=== PATIENT | female | born 1945 | race Caucasian/White ===

== ENCOUNTER 2016-12-03 08:19 | Emergency (ER) | payer OTHER ==
[~2016-12-03] VITALS: Ht 157.5 cm; Wt 63.4 kg
[~2016-12-03 08:19] MED LIST: ABILIFY5 MG PO; ADULT LOW STREN81 M2 PO; ALEVE220 MG PO; AMOXICILLIN875 MG PO; ASCORBIC ACID500 M3 PO; ASPIRIN81 M2 PO; AZO CRANBERRY1 EACH PO; B-121500 MCG PO; BACTRIM,SEPT1 TABLET PO; BENTYL10 MG PO; CALCITRIOL0.5 MCG PO; CARVEDILOL3.125 MG PO; CENTRUM SILV1 TABLET PO; CENTRUM SILVER1 EAC3 PO; CENTRUM SILVER1 EACH PO; CEPHALEXIN500 M2 PO; CIPRO500 MG PO; CLARITIN10 M3; DICYCLOMINE HCL20 MG PO; ERGOCALCIF50000 UNIT PO; FLONASE16 G1 BOTH NARES; FLOVENT 22120 INHALA IH; FLOVENT DISKUS1 DIS2 IH; FOLIC ACID0.8 MG PO; KEFLEX500 MG PO; LAMOTIL PO; LO-DOSE ASPIRIN81 M1 PO; LOMOTIL TABLET1 EACH PO; LORAZEPAM0.5 MG PO; MEDROL DOSEPAK4 MG PO; METRO CREAM 0.745 GM TD; NABI650T PO; OMEPRAZOLE10 M1 PO; PHENOBARBITAL30 MG PO; PHENOBARBITAL32.4 MG PO; PRILOSEC20 MG PO; SERTRALINE HCL50 MG PO; SIMVASTATIN20 M1 PO; SIMVASTATIN20 MG PO; THERAGRAN1 TABLET PO; TYLENOL ARTHRI650 M2 PO; UNABLEOBTAIN; VENTOLIN HFA18 GM IH; VENTOLIN17 GM IH; VITAMIN B12 100MCG PO; VITAMIN B12-FO1 EACH PO; VITAMIN D1000 INTUN PO; ZANTAC150 MG PO; ZOCOR20 MG PO
[2016-12-03 09:49] LABS: EOSINOPHIL (%) 1.4 % (0-5); EOSINOPHIL COUNT 0.1 K/uL (0-0.3); LYMPHOCYTE COUNT 1.9 K/uL (1.0-2.8); MCHC 33.2 G/DL (30.0-36.0); MCV 93.2 FL (83-99); MEAN PLAT.VOLUME 10.1 uM^3 (9.5-12.4); MONOCYTE (%) 8.7 % (3-12); MONOCYTE COUNT 0.6 K/uL (0-0.8); NEUTROPHIL (%) 60.4 % (45-76); NEUTROPHIL COUNT 3.9 K/uL (1.8-6.4); PLATELET COUNT 134 K/uL (156-360); RBC DIS.WIDTH-CV 13.3 % (11.8-14.6); RBC DIS.WIDTH-SD 43.7 % (39-53); RED BLOOD COUNT 3.65 M/uL (3.80-5.20); WHITE BLOOD COUNT 6.5 K/uL (4.1-10.2)
[2016-12-03 10:00] LABS: CHLORIDE 109 mEq/L (99-109); POTASSIUM 3.7 mEq/L (3.7-5.4); SODIUM 140 mEq/L (136-147)
[2016-12-03 10:03] LABS: GLUCOSE 109 mg/dL (70-99)
[2016-12-03 10:04] LABS: ANION GAP 12 MEQ/L (2-14)
[2016-12-03 10:05] LABS: TOTAL BILIRUBIN 0.2 mg/dL (0.0-1.0)
[2016-12-03 10:06] LABS: ALKALINE PHOSPHATASE 116 IU/L (3-129); SERUM ETHYL ALCOHOL < 10 mg/dL
[2016-12-03 10:07] LABS: GFR ESTIMATE (CALCULATED) 29 mL/min/
[2016-12-03 10:08] LABS: UREA NITROGEN (BUN) 29 mg/dL (9-23)
[2016-12-03 12:07] VITALS: BP 166/86
[2016-12-03 12:34] LABS: SAMPLE HEMOLYSIS CHECK 0; SAMPLE ICTERIC CHECK 0; SAMPLE LIPEMIA CHECK 0
== END 2016-12-03 12:08 | disposition home or self-care (01) ==
LOC: EME → EDBD 08:19 → EME 08:19
PROVIDERS: Emergency Medicine
DX: F22 Delusional disorders (principal); F41.9 Anxiety disorder, unspecified; I10 Essential (primary) hypertension; E78.5 Hyperlipidemia, unspecified; G40.909 Epilepsy, unspecified, not intractable, without status epilepticus; Z87.891 Personal history of nicotine dependence; Z79.82 Long term (current) use of aspirin; Z91.040 Latex allergy status
CPT/HCPCS: 80053; 80184; 81003; 85025; 90839; 99281; 99282; G0480

== ENCOUNTER 2016-12-16 17:15 | Emergency (ER) | payer OTHER ==
[~2016-12-16] VITALS: Ht 157.5 cm; Wt 64.4 kg
[2016-12-16 19:26] LABS: ADD MIUA? YES; BILIRUBIN NEGATIVE; BLOOD LARGE; COLOR YELLOW ((YELLOW)); GLUCOSE (STRIP) NEGATIVE; KETONES NEGATIVE; LEUKOCYTES MODERATE; NITRITE NEGATIVE; PROTEIN (STRIP) TRACE; SPECIFIC GRAVITY 1.019 (1.000-1.030); UROBILINOGEN 0.2 MG/DL (0.2-1.0)
[2016-12-16 19:39] LABS: ADD MEDTOX COMMENT Y; AMPHETAMINE NEGATIVE (500 ng/mL); BARBITURATES PRESUMPTIVE POSITIVE (200 ng/mL); BENZODIAZEPINES NEGATIVE (150 ng/mL); COCAINE NEGATIVE (150 ng/mL); INTERNAL CONTROLS VALID? YES; METHADONE NEGATIVE (200 ng/mL); METHAMPHETAMINE NEGATIVE (500 ng/mL); OPIATES (MORPHINE) NEGATIVE (100 ng/mL); OXYCODONE NEGATIVE (100 ng/mL); PHENCYCLIDINE NEGATIVE (25 ng/mL); PROPOXYPHENE NEGATIVE (300 ng/mL); THC CANNABINOIDS NEGATIVE (50 ng/mL); TRICYCLIC ANTIDEPRESSANTS NEGATIVE (300 ng/mL)
[2016-12-16 19:50] LABS: RED BLOOD CELLS TNTC /HPF (0-5)
[2016-12-16 19:51] LABS: BACTERIA NONE SEEN; CASTS NONE SEEN /LPF; CRYSTALS NONE SEEN; EPITHELIAL CELLS RARE; MUCUS NONE SEEN; UCUL ADDED? NO; WHITE BLOOD CELLS 0-5 /HPF (0-5)
[2016-12-16 20:09] VITALS: BP 146/76
== END 2016-12-16 20:20 | disposition home or self-care (01) ==
LOC: EME 17:15
PROVIDERS: Emergency Medicine
DX: F41.9 Anxiety disorder, unspecified (principal); F22 Delusional disorders; R10.9 Unspecified abdominal pain; R11.0 Nausea; R53.1 Weakness; I10 Essential (primary) hypertension; E78.5 Hyperlipidemia, unspecified; Z85.038 Personal history of other malignant neoplasm of large intestine; Z85.42 Personal history of malignant neoplasm of other parts of uterus; Z93.3 Colostomy status; Z79.82 Long term (current) use of aspirin; Z87.891 Personal history of nicotine dependence
CPT/HCPCS: 81003; 84999; 90839; 99281; 99284

== ENCOUNTER 2016-12-20 11:44 | Inpatient (IN) | payer OTHER ==
[~2016-12-20] VITALS: Ht 160 cm; Wt 55.1 kg
[2016-12-20 12:41] LABS: HEMATOCRIT 32.8 % (36.0-46.0); MCH 31.3 PG (29.0-34.0); MCHC 33.8 G/DL (30.0-36.0); MCV 92.4 FL (83-99); MEAN PLAT.VOLUME 10.1 uM^3 (9.5-12.4); PLATELET COUNT 149 K/uL (156-360); RBC DIS.WIDTH-CV 12.3 % (11.8-14.6); RBC DIS.WIDTH-SD 40.3 % (39-53); RED BLOOD COUNT 3.55 M/uL (3.80-5.20); WHITE BLOOD COUNT 6.2 K/uL (4.1-10.2)
[2016-12-20 12:51] LABS: CHLORIDE 112 mEq/L (99-109); SODIUM 142 mEq/L (136-147)
[2016-12-20 12:53] LABS: GLUCOSE 100 mg/dL (70-99)
[2016-12-20 12:54] LABS: ANION GAP 13 MEQ/L (2-14)
[2016-12-20 12:56] LABS: ADD MIUA? YES; BILIRUBIN NEGATIVE; BLOOD TRACE; COLOR YELLOW ((YELLOW)); GLUCOSE (STRIP) NEGATIVE; KETONES NEGATIVE; LEUKOCYTES LARGE; NITRITE NEGATIVE; PH, URINE 5.5 (5-8); PROTEIN (STRIP) TRACE; UROBILINOGEN 0.2 MG/DL (0.2-1.0)
[2016-12-20 12:57] LABS: GFR ESTIMATE (CALCULATED) 29 mL/min/
[2016-12-20 12:58] LABS: UREA NITROGEN (BUN) 28 mg/dL (9-23)
[2016-12-20 13:07] LABS: AMPHETAMINE NEGATIVE (500 ng/mL); BARBITURATES PRESUMPTIVE POSITIVE (200 ng/mL); BENZODIAZEPINES NEGATIVE (150 ng/mL); COCAINE NEGATIVE (150 ng/mL); INTERNAL CONTROLS VALID? YES; METHADONE NEGATIVE (200 ng/mL); METHAMPHETAMINE NEGATIVE (500 ng/mL); OPIATES (MORPHINE) NEGATIVE (100 ng/mL); OXYCODONE NEGATIVE (100 ng/mL); PHENCYCLIDINE NEGATIVE (25 ng/mL); PROPOXYPHENE NEGATIVE (300 ng/mL); THC CANNABINOIDS NEGATIVE (50 ng/mL); TRICYCLIC ANTIDEPRESSANTS NEGATIVE (300 ng/mL)
[2016-12-20 13:08] LABS: ADD MEDTOX COMMENT Y
[2016-12-20 13:29] LABS: RED BLOOD CELLS RARE /HPF (0-5)
[2016-12-20 13:30] LABS: BACTERIA RARE; CASTS NONE SEEN /LPF; CRYSTALS NONE SEEN; EPITHELIAL CELLS 1+; MUCUS NONE SEEN; WHITE BLOOD CELLS 15-20 /HPF (0-5)
[2016-12-20 18:30] VITALS: BP 183/84
[2016-12-20] MEDS ORDERED: CARVEDILOL3.125 MG PO (19:12)
[2016-12-20] MEDS ORDERED: DICYCLOMINE HCL20 MG PO (19:13)
[2016-12-20] MEDS ORDERED: CALCITRIOL0.5 MCG PO (19:14)
[2016-12-20] MEDS ORDERED: SIMVASTATIN20 MG PO (19:15)
[2016-12-20] MEDS ORDERED: PHENOBARBITAL64.8 MG PO (19:16)
[2016-12-20] MEDS ORDERED: LO-DOSE ASPIRIN81 M2 PO (19:17)
[2016-12-20] MEDS ORDERED: FOLIC ACID0.8 MG PO (19:18)
[2016-12-20] MEDS ORDERED: CENTRUM SILVER1 EAC3 PO (19:18)
[2016-12-20] MEDS ORDERED: C COMPLEX500 MG PO (19:20)
[2016-12-20] MEDS ORDERED: VITAMIN B12 100MCG PO (19:21)
[2016-12-21 09:08] VITALS: BP 150/67
[2016-12-21 16:09] VITALS: BP 163/72
[2016-12-22 07:57] VITALS: BP 151/69
[2016-12-22 15:39] VITALS: BP 136/80
[2016-12-23 07:44] VITALS: BP 99/54
[2016-12-23 16:18] VITALS: BP 128/65
[2016-12-24 07:15] VITALS: BP 129/60
[2016-12-24 15:52] VITALS: BP 133/81
[2016-12-25 09:16] VITALS: BP 112/71
[2016-12-25 15:52] VITALS: BP 130/63
[2016-12-26 07:29] VITALS: BP 117/57
[2016-12-26 15:49] VITALS: BP 147/69
[2016-12-27 07:57] VITALS: BP 116/58
[2016-12-27 16:06] VITALS: BP 145/72
[2016-12-27 21:54] VITALS: BP 149/72
[2016-12-28 07:53] VITALS: BP 133/78
[2016-12-28 16:13] VITALS: BP 137/66
[2016-12-29 07:47] VITALS: BP 109/56
[2016-12-29 15:45] VITALS: BP 104/51
[2016-12-30 07:53] VITALS: BP 123/69
[2016-12-30 15:30] VITALS: BP 113/58
[2016-12-31 09:46] VITALS: BP 110/57
[2016-12-31 15:44] VITALS: BP 126/64
[2017-01-01 08:05] VITALS: BP 104/54
[2017-01-01 15:34] VITALS: BP 132/69
[2017-01-02 07:45] VITALS: BP 126/63
[2017-01-02] MEDS ORDERED: HALDOL5 MG PO (09:38)
[2017-01-02] MEDS ORDERED: COGENTIN0.5 MG PO (09:38)
== END 2017-01-02 11:25 | disposition home or self-care (01) | DRG 885 ==
LOC: EME 11:44 → EDOF 13:26 → 1WEST 13:26
PROVIDERS: Nurse Practitioner Family
DX: F22 Delusional disorders (principal); F25.1 Schizoaffective disorder, depressive type; E78.5 Hyperlipidemia, unspecified; G40.909 Epilepsy, unspecified, not intractable, without status epilepticus; J45.909 Unspecified asthma, uncomplicated; E83.51 Hypocalcemia
CPT/HCPCS: 72040; 80048; 81003; 84999; 85027; 90837; 97150 GO; 97166 GO; 99281; 99285; J7030

== ENCOUNTER 2017-05-26 10:36 | Emergency (ER) | payer OTHER ==
[~2017-05-26] VITALS: Ht 160 cm; Wt 56.8 kg
[~2017-05-26 10:36] MED LIST changes: +C COMPLEX500 MG PO; +COGENTIN0.5 MG PO; +HALDOL5 MG PO; +LO-DOSE ASPIRIN81 M2 PO; +PHENOBARBITAL64.8 MG PO
[2017-05-26 10:56] VITALS: BP 117/64
== END 2017-05-26 12:37 | disposition left against medical advice (07) ==
LOC: EME 10:36
DX: R10.9 Unspecified abdominal pain (principal); R31.9 Hematuria, unspecified; Z53.21 Procedure and treatment not carried out due to patient leaving prior to being seen by health care provider
CPT/HCPCS: 81003